=== PATIENT | male | born 1935 | race Caucasian/White ===

== ENCOUNTER 2018-06-09 08:43 | Emergency (ER) | payer MEDICARE ==
--- NOTE | 2018-06-09 08:58 | ED ---
Altered Mental Status - HPI Summary HPI Summary: The pt is an 83 year old M presenting to the ED BIBA for altered mental status. LEVEL 5 CAVEAT: The pts full hx and physical is limited due to AMS. Per son, the pts found him standing in the hallway like a zombie, completely unresponsive, not talking properly and not walking. The pt was fine over the weekend. The pt has lung cancer which he finished tx in February for, and HTN which he takes medicine for. The pts son denies hx of DM, heart disease, or respiratory issues. - History Of Current Complaint Stated Complaint: AMS Time Seen by Provider: 06/09/18 08:49 Hx Obtained From: Family/Medical Center Director - son, EMS Hx From Patient Unobtainable Due To: Altered Mental Status Onset/Duration: Still Present, Suddenly - this morning, unresponsive, not walking or talking Timing: Constant, Lasting Hours Severity Initially: Mild Severity Currently: Mild Character: Confusion, Responsiveness - none Aggravating Factor(s): Nothing Alleviating Factor(s): Nothing Associated Signs And Symptoms: Positive: Negative - Allergies/Home Medications Allergies/Adverse Reactions: Allergies Allergy/AdvReac Type Severity Reaction Status Date / Time No Known Allergies Allergy Verified 01/05/16 07:08 PMH/Surg Hx/FS Hx/Imm Hx Previously Healthy: No Endocrine/Hematology History: Denies: Hx Anticoagulant Therapy, Hx Diabetes, Hx Thyroid Disease Cardiovascular History: Reports: Hx Hypertension Denies: Hx Congestive Heart Failure, Hx Deep Vein Thrombosis, Hx Myocardial Infarction, Hx Pacemaker/ICD Respiratory History: Denies: Hx Asthma, Hx Chronic Obstructive Pulmonary Disease (COPD), Hx Lung Cancer, Hx Pneumonia, Hx Pulmonary Embolism GI History: Denies: Hx Gall Bladder Disease, Hx Gastrointestinal Bleed, Hx Ulcer, Hx Urosepsis History: Denies: Hx Kidney Stones, Hx Renal Disease Neurological History: Denies: Hx Dementia, Hx Migraine, Hx Seizures, Hx Transient Ischemic Attacks (TIA) Psychiatric History: Denies: Hx Anxiety, Hx Depression, Hx Schizophrenia, Hx Bipolar Disorder - Cancer History Cancer Type, 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, lung cancer Date and Location of Last Treatment: last chemotherapy in February - Surgical History Surgery Procedure, Year, and Place: appe; port left chest; tonsils Infectious Disease History: Denies: Hx Clostridium Difficile, Hx Hepatitis, Hx Human Immunodeficiency Virus (HIV), Hx of Known/Suspected MRSA, Hx Shingles, Hx Tuberculosis, Hx Known/ Suspected VRE, Hx Known/Suspected VRSA, History Other Infectious Disease - Family History Known Family History: Negative: Cardiac Disease, Seizure Disorder - Social History Alcohol Use: None Substance Use Type: Reports: None Smoking Status (MU): Former Smoker Review of Systems Negative: Fever Neurological: Other - nonresponsive, not talking or walking properly Positive: Weakness All Other Systems Reviewed And Are Negative: Yes Physical Exam - Summary Physical Exam Summary: Appearance: Well-appearing, Well-nourished, lying in bed comfortably Skin: Warm, dry, no obvious rash Eyes: sclera anicteric, no conjunctival pallor ENT: mucous membranes moist, pharynx appears normal Neck: Supple, nontender Respiratory: Clear to auscultation, no signs of respiratory distress Cardiovascular: Normal S1, S2. No murmurs. Normal distal pulses in tibial and radial bilaterally. Abdomen: Soft, nontender, normal active bowel sounds present Musculoskeletal: Strength/ROM Intact Neurological: pt is awake, turns to voice but is nonverbal. Appears to have symmetrical movement in extremities. No facial droop. Tremor of the tongue. Appears to gaze preferentially to the L but can gaze rightward when prompted. Psychiatric: does not appear anxious or depressed Triage Information Reviewed: Yes Vital Signs Reviewed: Yes Completion Of Physical Exam Limited Due To: Altered Mental Status Diagnostics - Laboratory Result Diagrams: 06/09/18 09:10 06/09/18 09:10 Lab Statement: Any lab studies that have been ordered have been reviewed, and results considered in the medical decision making process. - Radiology Chest xray Radiology Interpretation Completed By: Radiologist Summary of Radiographic Findings: Possible infiltrate at the medial aspect of the right lower lung. - CT 0850 CT Interpretation Completed By: Radiologist Summary of CT Findings: 1. There is mixed attenuation atherosclerosis of the bilateral carotid bulbs. According to NASCET criteria there is approximately 38 % degree stenosis at the right carotid bulb and a 0% degree stenosis at the left carotid bulb. 2. There is no abrupt filling defect or other acute abnormality of the visualized arteries of the head and neck. 3. There is an age -appropriate degree of microvascular disease and involutional changes of the brain. 4. Possible nasal polyp in the left choana. Superior characterization could BE made with direct visualization. 5. Incidentally noted is low- attenuation material surrounding the patient's left subclavian vein Mediport. This could either be due to contrast-free blood mixing from the left internal jugular vein or could be formation of a fibrin sheath. Please correlate to functionality of the patient's Mediport. CTA Head/Neck/Brain CT Interpretation Completed By: Radiologist Summary of CT Findings: 1. There is mixed attenuation atherosclerosis of the bilateral carotid bulbs. According to NASCET criteria there is approximately 38 % degree stenosis at the right carotid bulb and a 0% degree stenosis at the left carotid bulb. 2. There is no abrupt filling defect or other acute abnormality of the visualized arteries of the head and neck. 3. There is an age -appropriate degree of microvascular disease and involutional changes of the brain. 4. Possible nasal polyp in the left choana. Superior characterization could BE made with direct visualization. 5. Incidentally noted is low- attenuation material surrounding the patient's left subclavian vein Mediport. This could either be due to contrast-free blood mixing from the left internal jugular vein or could be formation of a fibrin sheath. Please correlate to functionality of the patient's Mediport. Altered Mental Statu Course/Dx - Course Course Of Treatment: The pt is an 83 y/o M presenting to the ED BIBA for AMS. found him standing in hallway "like a zombie" not responding or walking. The pt was fine before this event. The pt has a hx of lung cancer and HTN. - Diagnoses Provider Diagnoses: Altered mental status Discharge - Sign-Out/Discharge Documenting (check all that apply): Patient Departure - Discharge Plan Condition: Stable Disposition: TRANS HIGHER LVL OF CARE FAC Referrals: No Primary Care Phys,NOPCP [Medical Doctor] - - Billing Disposition and Condition Condition: STABLE Disposition: Trans Higher Lvl of Care Fac - Attestation Statements Document Initiated by Scribe: Yes Documenting Scribe: Kamala Frank Provider For Whom Joana is Documenting (Include Credential): Romulo Ding MD. Scribe Attestation: Kamala Rogers scribed for Romulo Ding MD. on 06/09/18 at 1746. Scribe Documentation Reviewed: Yes Provider Attestation: The documentation as recorded by the jesusibKamala anne accurately reflects the service I personally performed and the decisions made by Romulo spencer MD. Consult Consult: 1230 - Spoke with Dr. Soler about the pt's history and present condition, who will be coming to see the patient for further evaluation. He will be the accepting physician. Our hospitalist service have the patient evaluated by our neurologist Dr. Waite. After hearing the history Dr. Waite feels that the patient will need an EEG and perhaps EEG monitoring, and we do not have that capability today. Therefore he feels the patient should be transferred to a tertiary care center. I'll make the arrangements to have him transferred out. 1630 - Godfrey Martell MD., from [facility], has confirmed that there is EEG monitoring at their hospital. He will be reviewing some paperwork and calling us back to confirm acceptance. 1649 - Dr. Palma will be the accepting physician at [facility].
--- OUTSIDE RECORDS SUMMARY | 2018-06-09 09:15 | XMS REPORT | Continuity of Care Document ---
:1935 External Reference #:[id number] Author Name [facility] Care Team Providers Name Role Phone Eboni Jacobs D.O. Care Team Information Bottle Blower Unavailable Hakeem Mitchell MD Primary Care Physician Unavailable Payers Type Date Identification Numbers Payment Provider Subscriber Policy Number: [id number] Medicare Nikos Yoon PayID: [id number] [address] [place] [address] Effective: 2013 Policy Number: Aar Supplemental Plan Nikos Yoon [id number] PayID: [id number] [address] [place] [address] Effective: 2002 Policy Number: [id number] Medicare Nikos Yoon Expires: 2018 PayID: [id number] [address] [place] [address] Advance Directives Description No Information Available Problems Date Description Provider Status Onset: 01/22/2012 Microscopic hematuria Johana Sewell MD Active Onset: 01/22/2012 Raised prostate specific antigen Johana Sewell MD Active Onset: 01/22/2012 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 No family history of kidney stones. Social History Type Date Description Comments Sex Unknown Marital Status Patient is Occupation Patient is retired Tobacco Use Start: Unknown End: Unknown Former Cigarette Smoker quit 1955 Smoking Status Reviewed: 06/03/18 Former Cigarette Smoker quit 1955 ETOH Use 01/31/2017 Patient denies alcohol use Allergies, Adverse Reactions, Alerts Description No Known Drug Allergies Medications Medication Date Status Form Strength Qnty SIG Indications Ordering Provider Tamsulosin HCL 04/26 Active Capsules 0.4mg 30cap 1 by Balaji brittanie Leiva MD every day Hydrochlorothiazide Active Tablets 25mg Unknown /0000 Stool Softener Active Capsules 100mg take 1 Unknown capsule by mouth once Tamsulosin HCL Hx Capsules 0.4mg 90cap PO qd Elhassan, /0000 s Vasquez M, - M.D. 04/25 Allopurinol Hx Tablets 100mg Boufal, /0000 Eboni, - D.O. 08/19 Vitamin D Hx Capsules [id number] Boufal, (Ergocalciferol) /0000 Eboni, - D.O. 12/13 Immunizations Description No Information Available Vital Signs Date Vital Result Comment 05/24/2018 9:47am Height 65 inches 5'5" Weight 123.00 lb Weight 55.793 kg BMI (Body Mass Index) 20.5 kg/m2 Post Void Residual ml 287 bladder scan 04/26/2018 9:35am Height 66 inches 5'6" Weight 128.00 lb Weight 58.061 kg BMI (Body Mass Index) 20.7 kg/m2 12/14/2017 2:24pm Height 66 inches 5'6" Weight 136.25 lb Weight 61.803 kg BMI (Body Mass Index) 22.0 kg/m2 BP Systolic 143 mmHg BP Diastolic 70 mmHg Heart Rate 59 /min Respiratory Rate 20 /min 08/20/2017 3:21pm Height 66 inches 5'6" Weight 143.00 lb Weight 64.865 kg BMI (Body Mass Index) 23.1 kg/m2 BP Systolic 134 mmHg BP Diastolic 82 mmHg Heart Rate 61 /min 07/25/2017 1:59pm Height 66 inches 5'6" Weight 145.00 lb Weight 65.772 kg BMI (Body Mass Index) 23.4 kg/m2 BP Systolic 159 mmHg BP Diastolic 80 mmHg Heart Rate 62 /min Respiratory Rate 20 /min 01/31/2017 1:58pm Height 65 inches 5'5" Weight 155.00 lb Weight 70.308 kg BMI (Body Mass Index) 25.8 kg/m2 BP Systolic 137 mmHg BP Diastolic 83 mmHg Heart Rate 68 /min Respiratory Rate 20 /min Body Temperature 97.5 F 01/21/2016 9:03am Height 65 inches 5'5" Weight 153.00 lb Weight 69.401 kg BMI (Body Mass Index) 25.5 kg/m2 BP Systolic 142 mmHg right wrist audio BP Diastolic 87 mmHg right wrist audio Heart Rate 63 /min Body Temperature 97.3 F Post Void Residual ml 30ml Indication:, Ultrasound johanny 01/29/2015 9:19am Height 64 inches 5'4" Weight 151.00 lb Weight 68.494 kg BMI (Body Mass Index) 25.9 kg/m2 BP Systolic 130 mmHg right wrist audio BP Diastolic 76 mmHg right wrist audio Heart Rate 72 /min Body Temperature 97.8 F 01/23/2014 9:14am Height 65 inches 5'5" Weight 150.00 lb Weight 68.040 kg BMI (Body Mass Index) 25.0 kg/m2 BP Systolic 129 mmHg right wrist audio BP Diastolic 77 mmHg right wrist audio Heart Rate 66 /min Body Temperature 97.8 F 07/22/2013 8:34am Height 65 inches 5'5" Weight 160.00 lb Weight 72.576 kg BMI (Body Mass Index) 26.6 kg/m2 BP Systolic 126 mmHg right wrist auto cuff BP Diastolic 80 mmHg right wrist auto cuff Heart Rate 78 /min Body Temperature 97.9 F 01/24/2013 1:09pm Respiratory Rate 12 /min 07/19/2012 9:23am Height 65 inches 5'5" Weight 160.00 lb Weight 72.576 kg BMI (Body Mass Index) 26.6 kg/m2 BP Systolic 123 mmHg right BP Diastolic 70 mmHg right Heart Rate 64 /min Body Temperature 97.2 F 01/24/2012 4:06pm BP Systolic 123 mmHg right BP Diastolic 75 mmHg right Heart Rate 65 /min Body Temperature 98.4 F 07/27/2011 2:11pm Heart Rate 78 /min 07/27/2011 2:07pm BP Systolic 136 mmHg BP Diastolic 86 mmHg Respiratory Rate 18 /min Body Temperature 98.2 F 01/25/2011 3:32pm BP Systolic 118 mmHg left wrist BP Diastolic 72 mmHg left wrist Heart Rate 63 /min Body Temperature 98.3 F Results Test Date Facility Test Result H/L Range Note 230 Ua Routine 06/03/2018 [facility] Ua Glucose Negative REF TO DR ADDRESS ON ORDER FOR (315)- - Ua Protein Negative Ua Nitrite Negative Ua Leuko Trace Ua Blood Negative Ua Color Yellow Ua Ketones Negative Ua Clarity Clear Ua Specific Central 1.020 1.003-1.030 Ua PH 5.5 5.0-7.5 Ua Bilirubin Negative Ua Urobilinogen 0.2 E.U./dL 0.0-1.0 230 Ua Routine 05/24/2018 [facility] Ua Glucose Negative REF TO DR ADDRESS ON ORDER FOR (315)- - Ua Protein Negative Ua Nitrite Negative Ua Leuko Negative Ua Blood Negative Ua Color Yellow Ua Ketones Negative Ua Clarity Clear Ua Specific Central 1.020 1.003-1.030 Ua PH 5.0 5.0-7.5 Ua Bilirubin Negative Ua Urobilinogen 0.2 E.U./dL 0.0-1.0 Laboratory test 05/16/2018 [facility] Prostate 7.38 ng/mL High < 4.0 1, 2 finding [address] [place] [address] Antigen [phone] 230 Ua Routine 04/26/2018 [facility] Ua Glucose Negative REF TO DR ADDRESS ON ORDER FOR (315)- - Ua Protein Negative Ua Nitrite Negative Ua Leuko Negative Ua Blood Negative Ua Color Yellow Ua Ketones Negative Ua Clarity Clear Ua Specific Central 1.015 1.003-1.030 Ua PH 6.0 5.0-7.5 Ua Bilirubin Negative Ua Urobilinogen 0.2 E.U./dL 0.0-1.0 Iron And Tibc Serum 03/07/2018 Outside Facility Miscellaneous Test 79 65 -175 (315)- - Laboratory test 03/07/2018 Outside Facility Egfr >60 >60 finding (315)- - CMP 03/07/2018 Outside Facility BUN - Urea Nitrogen 19 High 7-18 (315)- - Creatinine 1.0 0.6-1.3 Calcium 9.3 8.5-10.1 Alkaline Phosphatase 57 45-117 Ast (Sgot) 16 15-37 Potassium 3.3 Low 3.5-5.1 Alt (SGPT) 22 12-78 230 Ua Routine 12/14/2017 [facility] Ua Glucose Negative REF TO DR ADDRESS ON ORDER FOR (315)- - Ua Protein Negative Ua Nitrite Negative Ua Leuko Negative Ua Blood Negative Ua Color Yellow Ua Ketones Negative Ua Clarity Clear Ua Specific Central 1.020 1.003-1.030 Ua PH 6.0 5.0-7.5 Ua Bilirubin Negative Ua Urobilinogen 0.2 E.U./dL 0.0-1.0 Laboratory test 12/04/2017 Outside Facility PSA Total 8.11 High <4.0 finding (315)- - CMP 12/04/2017 Outside Facility BUN - Urea 19 High 7-18 (315)- - Nitrogen Creatinine 0.8 0.6-1.3 Calcium 9.1 8.5-10.1 Alkaline Phosphatase 66 45-117 Ast (Sgot) 17 15-37 Potassium 3.3 Low 3.5-5.1 Alt (SGPT) 18 12-78 Laboratory test finding 12/04/2017 Outside Facility Egfr >60 >60 (315)- - 230 Ua Routine 08/20/2017 [facility] Ua Glucose Negative REF TO DR ADDRESS ON ORDER FOR (315)- - Ua Protein Negative Ua Nitrite Negative Ua Leuko Trace Ua Blood Negative Ua Color Yellow Ua Ketones Negative Ua Clarity Clear Ua Specific Central 1.020 1.003-1.030 Ua PH 5.0 5.0-7.5 Ua Bilirubin Negative Ua Urobilinogen 0.2 E.U./dL 0.0-1.0 Laboratory test 07/25/2017 [facility] Total Psa 6.52 ng/mL High 0.00-4.[address] [place] [address] [phone] Free PSA 2.3 ng/mL % PSA 35.276 230 Ua Routine 07/25/2017 [facility] Ua Glucose Negative REF TO DR ADDRESS ON ORDER FOR (315)- - Ua Protein Negative Ua Nitrite Negative Ua Leuko Negative Ua Blood Negative Ua Color Yellow Ua Ketones Negative Ua Clarity Clear Ua Specific Central 1.010 1.003-1.030 Ua PH 5.5 5.0-7.5 Ua Bilirubin Negative Ua Urobilinogen 0.2 E.U./dL 0.0-1.0 230 Ua Routine 01/31/2017 [facility] Ua Glucose Negative REF TO DR ADDRESS ON ORDER FOR (315)- - Ua Protein Negative Ua Nitrite Negative Ua Leuko Negative Ua Blood Negative Ua Color yellow Ua Ketones Negative Ua Clarity clear Ua Specifici Central 1.015 1.003-1.030 Ua PH 5.5 5.0-7.5 Ua Bilirubin Negative Ua Urobilinogen 0.2 E.U./dL 0.0-1.0 Laboratory test 01/31/2017 [facility] Total Psa 5.97 ng/mL High 0.00-4.[address] [place] [address] [phone] Testosterone 369.83 ng/dL 300.00-1000.00 230 Ua Routine 07/26/2016 [facility] Ua Glucose Negative REF TO DR ADDRESS ON ORDER FOR (315)- - Ua Protein Negative Ua Nitrite Negative Ua Leuko Trace Ua Blood Negative Ua Color yellow Ua Ketones Negative Ua Clarity clear Ua Specifici Central 1.020 1.003-1.030 Ua PH 6.5 5.0-7.5 Ua Bilirubin Negative Ua Urobilinogen 0.2 E.U./dL 0.0-1.0 Laboratory test 01/24/2016 [facility] [place] PSA,Total @ 7.8 ng/mL High (0.0-4.0) 3, 4 finding POB FX# [phone] [phone] Testosterone,Total @ 277 ng/dL (175-781) 5 230 Ua Routine 01/21/2016 [facility] Ua Glucose Negative REF TO DR ADDRESS ON ORDER FOR (315)- - Ua Protein Negative Ua Nitrite Negative Ua Leuko Trace Ua Blood Negative Ua Color yellow Ua Ketones Negative Ua Clarity clear Ua Specifici Central 1.015 1.003-1.030 Ua PH 6.0 5.0-7.5 Ua Bilirubin Negative Ua Urobilinogen 0.2 E.U./dL 0.0-1.0 230 Ua Routine 07/22/2015 [facility] Ua Glucose Negative REF TO DR ADDRESS ON ORDER FOR (315)- - Ua Protein Negative Ua Nitrite Negative Ua Leuko 1+ Ua Blood Negative Ua Color yellow Ua Ketones Negative Ua Clarity clear Ua Specific Central 1.015 1.003-1.030 Ua PH 6.0 5.0-7.5 Ua Bilirubin Negative Ua Urobilinogen 0.2 E.U./dL 0.0-1.0 Laboratory test 07/22/2015 [facility] Total Psa 4.62 ng/mL High 0.00-4.[address] [place] [address] [phone] Testosterone 525.61 ng/dL 300.00-1000.00 #Ua Routine 01/29/2015 [facility] Ua Glucose Negative REF TO DR ADDRESS ON ORDER FOR (315)- - Ua Protein Negative Ua Nitrite Negative Ua Leuko Negative Ua Blood Negative Ua Color yellow Ua Ketones Negative Ua Clarity clear Ua Specific Central 1.015 1.003-1.030 Ua PH 5.5 5.0-7.5 Ua Bilirubin Negative Ua Urobilinogen 0.2 E.U./dL 0.0-1.0 Laboratory test 01/29/2015 [facility] Total Psa 5.26 ng/mL High 0.00-4.[address] [place] [address] [phone] #Ua Routine 07/28/2014 [facility] Ua Glucose Negative REF TO DR ADDRESS ON ORDER FOR (315)- - Ua Protein Negative Ua Nitrite Negative Ua Leuko Negative Ua Blood Negative Ua Color yellow Ua Ketones Negative Ua Clarity clear Ua Specific Central 1.015 1.003-1.030 Ua PH 6.0 5.0-7.5 Ua Bilirubin Negative Ua Urobilinogen 0.2 E.U./dL 0.0-1.0 BMP 07/22/2014 [facility] BUN - Urea Nitrogen 17 7 -18 [address] [place], [place] [address] [phone] Creatinine 1.2 0.6-1.3 Laboratory test 07/22/2014 [facility] Total Psa 5.35 ng/mL High 0.00-4.[address] [place] [address] [phone] Testosterone 319.98 ng/dL 300.00-1000.00 #Ua Routine 01/23/2014 [facility] Ua Glucose Negative REF TO DR ADDRESS ON ORDER FOR (315)- - Ua Protein Negative Ua Nitrite Negative Ua Leuko Trace Ua Blood Negative Ua Color yellow Ua Ketones Negative Ua Clarity clear Ua Specific Central 1.015 1.003-1.030 Ua PH 5.0 5.0-7.5 Ua Bilirubin Negative Ua Urobilinogen 0.2 E.U./dL 0.0-1.0 Laboratory test 01/21/2014 [facility] Total Psa 3.61 ng/mL 0.00-4.[address] [place] [address] [phone] #Ua Routine 07/25/2013 [facility] Ua Glucose Negative REF TO DR ADDRESS ON ORDER FOR (315)- - Ua Protein Negative Ua Nitrite Negative Ua Leuko Negative Ua Blood Negative Ua Color yellow Ua Ketones Negative Ua Clarity clear Ua Specific Central 1.025 1.003-1.030 Ua PH 6.0 5.0-7.5 Ua Bilirubin Negative Ua Urobilinogen 0.2 E.U./dL 0.2-1 Laboratory test 07/22/2013 [facility] Total PSA 5.00 ng/mL High 0.00-4.[address] [place] [address] [place] [address] [phone] Testosterone 528.32 ng/dL 300.00-1000.00 BUN And 06/02/2013 Outside Facility BUN - Urea 20 6-24 Creatinine (Lab (315)- - Nitrogen [place]) Creatinine 06/02/2013 Outside Facility Creatinine Serum 0.9 .5-1.4 (315)- - Laboratory test 01/17/2013 [facility] Total PSA 4.39 High 0.00-4.[address] [place] [address] ng/[place] [address] [phone] PSA Free 01/17/2013 [facility] Free PSA 1.[address] [place] [address] ng/[place] [address] [phone] Free PSA 37 #Ua Routine 01/17/2013 [facility] Ua Glucose Negative REF TO DR ADDRESS ON ORDER FOR (315)- - Ua Protein Negative Ua Nitrite Negative Ua Leuko Negative Ua Blood Trace-intact Ua Color Not Entered Ua Ketones Negative Ua Clarity Not Entered Ua Specific Central 1.015 Ua PH 6.5 Ua Bilirubin Negative Ua Urobilinogen 0.2 E.U./dL Laboratory test 07/19/2012 [facility] Total PSA 3.53 ng/mL 0.00-4.[address] [place] [address] [phone] Testosterone 414.09 ng/dL 199.00-1586.00 #Ua Routine 07/19/2012 [facility] Ua Glucose Negative REF TO DR ADDRESS ON ORDER FOR (315)- - Ua Protein Negative Ua Nitrite Negative Ua Leuko 1+ Ua Blood Negative Ua Color Not Entered Ua Ketones Negative Ua Clarity Not Entered Ua Specific Central 1.020 Ua PH 5.0 Ua Bilirubin Negative Ua Urobilinogen 0.2 E.U./dL #Ua Routine 01/24/2012 [facility] Ua Glucose Negative REF TO DR ADDRESS ON ORDER FOR (315)- - Ua Protein Negative Ua Nitrite Negative Ua Leuko Trace Ua Blood Negative Ua Color Not Entered Ua Ketones Negative Ua Clarity Not Entered Ua Specific Central 1.015 Ua PH 6.0 Ua Bilirubin Negative Ua Urobilinogen 0.2 E.U./dL Laboratory test 01/24/2012 [facility] Total PSA 7.34 ng/mL High 0.00-4.00 finding [address] [place] [address] [phone] PSA Free 01/24/2012 [facility] Free PSA 2.726 ng/mL [address] [place] [address] [phone] Free PSA 37 Laboratory test 07/27/2011 [facility] Urine Cytology X finding REF TO DR ADDRESS ON ORDER FOR Void (Amp/CBL) (315)- - Culture Urine 07/27/2011 [facility] Result (SEE 6 [address] [facility] [place] [address] [phone] Laboratory test 07/27/2011 [facility] Total PSA 4.34 High 0.00-4 finding [address] [facility] ng/mL .[address] [place] [address] [phone] Testosterone 375.57 ng/dL 225.00-972.00 PSA Free 07/27/2011 [facility] Free PSA 1.973 ng/mL [address] [place] [address] [phone] Free PSA 45 #Ua Routine 07/27/2011 [facility] Ua Glucose Negative REF TO DR ADDRESS ON ORDER FOR (315)- - Ua Protein Negative Ua Nitrite Negative Ua Leuko 3+ Ua Blood Trace-intact Ua Color Not Entered Ua Ketones Negative Ua Clarity Not Entered Ua Specific Central 1.020 Ua PH 5.0 Ua Bilirubin Negative Ua Urobilinogen 0.2 E.U./dL BUN + Creatinine 03/15/2011 [facility] BUN - Urea Nitrogen 15 5-[address] [place], [place] [id number] [phone] Creatinine 0.9 0.5-1.4 BUN + Creatinine 03/15/2011 [facility] BUN - Urea Nitrogen 15 5-23 [address] [place] [address] [phone] Creatinine 0.9 0.5-1.4 Laboratory test 01/25/2011 [facility] Total PSA 4.00 ng/mL 0.00-4.00 finding [address] [place] [address] [phone] #Ua Routine 01/25/2011 [facility] Ua Glucose Negative REF TO DR ADDRESS ON ORDER FOR (071)- - Ua Prot/Creat Normal Ua Protein Negative Ua Nitrite Negative Ua Leuko Trace Ua Blood Negative Ua Color Not Entered Ua Ketones Negative Ua Clarity Not Entered Ua Specific Central 1.020 Ua PH 6.0 Ua Creatinine 100 mg/dL Laboratory test finding 06/05/2006 Outside Facility PSA Total neg bx (305)- - 1 C82.18, E86.0, R97.20 2 THIS ASSAY IS NOT INTENDED A CANCER SCREENING TEST The concentration of PSA in a given specimen, determined with assays from different manufacturers, can vary due to differences in assay methods and reagent specificity. Values obtained from different assay methods cannot be used interchangeably. Method: Siemens Dimension Handley Chemiluminescent immunoassay. 3 specimen thawed at 08:20am 01/24/16 4 IN 20% OF CASES W/ BPH, PSA MAY BE 10 NG/ML OR MORE. SERUM PSA CONCENTRATION SHOULD NOT BE INTERPRETED ABSOLUTE EVIDENCE FOR THE PRESENCE OR ABSENCE OF MALIGNANT DISEASE. METHOD IS GERSON ACCESS/DXI EQUIMOLAR ASSAY. VALUES OBTAINED WITH DIFFERENT ASSAY METHODS OR KITS CANNOT BE USED INTERCHANGEABLY. 5 PLEASE NOTE: REFERENCE RANGE IS GENDER SPECIFIC FOR ADULTS ONLY. AGE/CHENG STAGE APPROPRIATE REFERENCE RANGES HAVE NOT BEEN ESTABLISHED FOR THIS METHODOLOGY. 6 GENERAL COMMENTS: No Growth after 24 hours. --- S=Sensitive I=Intermediate R=Resistant IB=Inducible Beta-lactamase. Appears in place of "Suceptible" with species known to possess inducible beta-lactamases. Potentially, they may become resistant to all beta-lactam drugs. Monitoring of p atients during/after therapy is recommended. Avoid other/combined beta- lactam drugs. Procedures Date Code Description Status 05/24/2018 79456 Bladder Scan, Post Voiding Residual Urine Completed 05/24/2018 84584610 Colonoscopy Completed 04/26/2018 28893 Bladder Scan, Post Voiding Residual Urine Completed 01/31/2017 89803 Bladder Scan, Post Voiding Residual Urine Completed 01/21/2016 59982 Bladder Scan, Post Voiding Residual Urine Completed 07/22/2015 81513 Ultrasound, Pelvic Limited (Bladder US) Completed Encounters Type Date Location Provider Dx Diagnosis Office Visit 06/03/2018 [facility]Yadira Montague R33.9 Retention of urine, 1:30p Urology Adore Nash unspecified R97.20 Elevated prostate specific antigen [PSA] Office 05/24/2018 [facility]Yadira Montague R33.9 Retention of Visit 10:00a Urology Adore Nash urine, unspecified Office 04/26/2018 [facility]Yadira Montague R97.20 Elevated Visit 9:15a Urology Adore Nash prostate specific antigen [PSA] R33.9 Retention of urine, unspecified Office 12/14/2017 [facility]Yadira Montague R97.20 Elevated Visit 2:30p Urology Adore Nash prostate specific antigen [PSA] Office 08/20/2017 Ty Leiva MD R97.20 Elevated Visit 2:30p Urology prostate specific antigen [PSA] Office 07/25/2017 Ty Leiva MD R97.20 Elevated Visit 1:35p Urology prostate specific antigen [PSA] Office 01/31/2017 Christina Mcconnell, N39.43 Post-void Visit 1:30p Urology Elicia eduardo R97.20 Elevated prostate specific antigen [PSA] N40.1 Benign prostatic hyperplasia with lower urinary tract symp Office Visit 07/26/2016 Christina Mcconnell R97.20 Elevated 3:00p Urology Elicia Huertas prostate specific antigen [PSA] N40.1 Benign prostatic hyperplasia with lower urinary tract symp N39.43 Post-void dribbling Office Visit 01/21/2016 9:00a Marian Molina, R97.2 Elevated Urology [facility] prostate specific antigen [PSA] N40.1 Enlarged prostate with lower urinary tract symptoms R35.0 Frequency of micturition Office Visit 07/22/2015 Christina Mcconnell R97.2 Elevated 9:10a Urology Elicia Huertas prostate specific antigen [PSA] N40.1 Enlarged prostate with lower urinary tract symptoms R35.1 Nocturia R35.0 Frequency of micturition R39.15 Urgency of urination Office Visit 01/29/2015 9:00a Marian Molina, 790.93 Elevated Urology [facility] Prostate Specific Antigen (PSA) 600.01 Hypertrophy Benign Of Prostate With Urinary Obstruction 788.4-1 Nocturia Office Visit 07/28/2014 8:40a Christina Mcconnell 788.4-1 Nocturia Urology Elicia Huertas 790.93 Elevated Prostate Specific Antigen (PSA) 600.01 Hypertrophy Benign Of Prostate With Urinary Obstruction 607.84 Impotence Organic Origin Office Visit 01/23/2014 9:00a Marian Molina, 790.93 Elevated Urology [facility]/[place] Prostate Specific Antigen (PSA) 599.72 Microscopic Hematuria Office Visit 07/25/2013 Christina Mcconnell 790.93 Elevated 10:30a Urology Elicia Huertas Prostate Specific Antigen (PSA) 788.4-1 Nocturia 607.84 Impotence Organic Origin Office Visit 01/24/2013 9:15a Marian Molina, 790.93 Elevated Urology [facility]/[place] Prostate Specific Antigen (PSA) 600.01 Hypertrophy Benign Of Prostate With Urinary Obstruction 599.72 Microscopic Hematuria Office Visit 07/24/2012 Christina Mcconnell 790.93 Elevated 1:10p Urology Elicia Huertas Prostate Specific Antigen (PSA) 600.01 Hypertrophy Benign Of Prostate With Urinary Obstruction Office Visit 01/24/2012 [place]/Christina Gimenez 790.93 Elevated 1:20p Urology Elicia Huertas Prostate Specific Antigen (PSA) 600.00 Hypertrophy Prostate W/O Urinary Obstruction & Other Luts Office Visit 07/27/2011 2:00p [place]/Yadira TraylorMarian, 790.93 Elevated Urology [facility]/[place] Prostate Specific Antigen (PSA) 600.01 Hypertrophy Benign Of Prostate With Urinary Obstruction 599.72 Microscopic Hematuria Office Visit 01/25/2011 [place]/Christina Gimenez 790.93 Elevated 2:50p Urology Elicia Huertas Prostate Specific Antigen (PSA) 788.4-1 Nocturia 600.01 Hypertrophy Benign Of Prostate With Urinary Obstruction Plan of Treatment 06/03/2018 - John Nash,P.ALauraR33.9 Retention of urine, unspecifiedComments :His urinary symptoms especially UTIs or any increasing incontinence we will further evaluation however this point the options are leave him alone or put a catheter in him. The son is comfortable with watchful waiting and be mindful of symptoms.R97.20 Elevated prostate specific antigen [PSA]Comments:Stable over the years. Discussing options including a prostate biopsy due to his age and general health we want to defer that. Uncomfortable at this point recommending that this gentleman has no further prostate cancer screening.I did advise his son today of the closing of our office the end of June. He is getting reviewed with your options what you think best would be for long-term urological follow-up whether UA to follow BUN/creatinine and he'll ultrasound. He also has the option of transferring his care to local urologist in [place] or coming to [place] for follow-up. They'll have this discussion with your office and let us know in the future.
--- OUTSIDE RECORDS SUMMARY | 2018-06-09 09:16 | XMS REPORT | Continuity of Care Document ---
:1935 External Reference #:[id number] Author Name Xena Kent Care Team Providers Name Role Phone Eboni Jacobs D.O. Care Team Information First Leveler Unavailable Hakeem Mitchell MD Primary Care Physician Unavailable Payers Type Date Identification Numbers Payment Provider Subscriber Policy Number: [id number] Medicare Nikos Yoon PayID: [id number] [address] [place] [address] Effective: 2013 Policy Number: Aar Supplemental Plan Nikos Yoon [id number] PayID: [id number] [address] [place] [address] Effective: 2002 Policy Number: [id number] Medicare Nikos Yoon Expires: 2018 PayID: [id number] [address] [place] [address] Advance Directives Description No Information Available Problems [...] Cigarette Smoker quit 1955 Smoking Status Reviewed: 05/24/18 Former Cigarette Smoker quit 1955 ETOH Use [...] - D.O. 08/19 Vitamin D Hx Capsules [id number] Boufal, (Ergocalciferol) /0000 Eboni, - D.O. 12/13 [...] Result H/L Range Note 230 Ua Routine 05/24/2018 [facility] Ua Glucose Negative REF TO DR ADDRESS ON ORDER FOR (315)- - Ua Protein Negative Ua Nitrite Negative Ua Leuko Negative Ua Blood Negative Ua Color Yellow Ua Ketones Negative Ua Clarity Clear Ua Specific [place] 1.020 1.003-1.030 Ua PH 5.0 5.0-7.5 Ua Bilirubin Negative Ua Urobilinogen 0.2 E.U./dL 0.0-1.0 Laboratory test 05/16/2018 [facility] Prostate 7.38 ng/mL < 4.0 1, [address] [place] [address] Antigen [phone] 230 Ua Routine 04/26/2018 [facility] Ua Glucose Negative REF TO DR ADDRESS ON ORDER FOR (315)- - Ua Protein Negative Ua Nitrite Negative Ua Leuko Negative Ua Blood Negative Ua Color Yellow Ua Ketones Negative Ua Clarity Clear Ua Specific [place] 1.015 1.003-1.030 Ua PH 6.0 5.0-7.5 Ua Bilirubin Negative Ua Urobilinogen 0.2 E.U./dL 0.0-1.0 CMP 03/07/2018 Outside Facility BUN - Urea Nitrogen 19 High 7-18 (315)- - Creatinine 1.0 0.6-1.3 Calcium 9.3 8.5-10.1 Alkaline Phosphatase 57 45-117 Ast (Sgot) 16 15-37 Potassium 3.3 Low 3.5-5.1 Alt (SGPT) 22 12-78 Laboratory test 03/07/2018 Outside Facility Egfr >60 >60 finding (315)- - Iron And Tibc 03/07/2018 Outside Facility Miscellaneous Test 79 65-175 Serum (315)- - 230 Ua Routine 12/14/2017 [facility] Ua Glucose Negative REF TO DR ADDRESS ON ORDER FOR (315)- - Ua Protein Negative Ua Nitrite Negative Ua Leuko Negative Ua Blood Negative Ua Color Yellow Ua Ketones Negative Ua Clarity Clear Ua Specific [place] 1.020 1.003-1.030 Ua PH 6.0 5.0-7.5 Ua Bilirubin Negative Ua Urobilinogen 0.2 E.U./dL 0.0-1.0 Laboratory test 12/04/2017 Outside Facility Egfr >60 >60 finding (315)- - CMP 12/04/2017 Outside Facility BUN - Urea Nitrogen 19 High 7-18 (315)- - Creatinine 0.8 0.6-1.3 Calcium 9.1 8.5-10.1 Alkaline Phosphatase 66 45-117 Ast (Sgot) 17 15-37 Potassium 3.3 Low 3.5-5.1 Alt (SGPT) 18 12-78 Laboratory test 12/04/2017 Outside Facility PSA Total 8.11 High <4.0 finding (315)- - 230 Ua Routine 08/20/2017 [facility] Ua Glucose Negative REF TO DR ADDRESS ON ORDER FOR (315)- - Ua Protein Negative Ua Nitrite Negative Ua Leuko Trace Ua Blood Negative Ua Color Yellow Ua Ketones Negative Ua Clarity Clear Ua Specific [place] 1.020 1.003-1.030 Ua PH 5.0 5.0-7.5 Ua Bilirubin Negative Ua Urobilinogen 0.2 E.U./dL 0.0-1.0 Laboratory test 07/25/2017 [facility] Total Psa 6.52 ng/mL High 0.00-4.[address] [place] [address] [phone] Free PSA 2.3 ng/mL % PSA 35.276 230 Ua Routine 07/25/2017 [facility] Ua Glucose Negative REF TO DR ADDRESS ON ORDER FOR (315)- - Ua Protein Negative Ua Nitrite Negative Ua Leuko Negative Ua Blood Negative Ua Color Yellow Ua Ketones Negative Ua Clarity Clear Ua Specific [place] 1.010 1.003-1.030 Ua PH 5.5 5.0-7.5 Ua Bilirubin Negative Ua Urobilinogen 0.2 E.U./dL 0.0-1.0 230 Ua Routine 01/31/2017 [facility] Ua Glucose Negative REF TO DR ADDRESS ON ORDER FOR (315)- - Ua Protein Negative Ua Nitrite Negative Ua Leuko Negative Ua Blood Negative Ua Color yellow Ua Ketones Negative Ua Clarity clear Ua Specifici [place] 1.015 1.003-1.030 Ua PH 5.5 5.0-7.5 Ua Bilirubin Negative Ua Urobilinogen 0.2 E.U./dL 0.0-1.0 Laboratory test 01/31/2017 [facility] Total Psa 5.97 ng/mL High 0.00-4.[address] [place] [address] [phone] Testosterone 369.83 ng/dL 300.00-1000.00 230 Ua Routine 07/26/2016 [facility] Ua Glucose Negative REF TO DR ADDRESS ON ORDER FOR (315)- - Ua Protein Negative Ua Nitrite Negative Ua Leuko Trace Ua Blood Negative Ua Color yellow Ua Ketones Negative Ua Clarity clear Ua Specifici [place] 1.020 1.003-1.030 Ua PH 6.5 5.0-7.5 Ua Bilirubin Negative Ua Urobilinogen 0.2 E.U./dL 0.0-1.0 Laboratory test 01/24/2016 [facility] [place] PSA,Total @ 7.8 ng/mL High (0.0-4.0) 3, 4 finding POB FX# [id number] [phone] Testosterone,Total @ 277 ng/dL (175-781) 5 230 Ua Routine 01/21/2016 [facility] Ua Glucose Negative REF TO DR ADDRESS ON ORDER FOR (315)- - Ua Protein Negative Ua Nitrite Negative Ua Leuko Trace Ua Blood Negative Ua Color yellow Ua Ketones Negative Ua Clarity clear Ua Specifici [place] 1.015 1.003-1.030 Ua PH 6.0 5.0-7.5 Ua Bilirubin Negative Ua Urobilinogen 0.2 E.U./dL 0.0-1.0 230 Ua Routine 07/22/2015 [facility] Ua Glucose Negative REF TO DR ADDRESS ON ORDER FOR (315)- - Ua Protein Negative Ua Nitrite Negative Ua Leuko 1+ Ua Blood Negative Ua Color yellow Ua Ketones Negative Ua Clarity clear Ua Specific [place] 1.015 1.003-1.030 Ua PH 6.0 5.0-7.5 Ua Bilirubin Negative Ua Urobilinogen 0.2 E.U./dL 0.0-1.0 Laboratory test 07/22/2015 [facility] Total Psa 4.62 ng/mL High 0.00-4.00 finding [address] [place] [address] [phone] Testosterone 525.61 ng/dL 300.00-1000.00 #Ua Routine 01/29/2015 [facility] Ua Glucose Negative REF TO DR ADDRESS ON ORDER FOR (315)- - Ua Protein Negative Ua Nitrite Negative Ua Leuko Negative Ua Blood Negative Ua Color yellow Ua Ketones Negative Ua Clarity clear Ua Specific [place] 1.015 1.003-1.030 Ua PH 5.5 5.0-7.5 Ua Bilirubin Negative Ua Urobilinogen 0.2 E.U./dL 0.0-1.0 Laboratory test 01/29/2015 [facility] Total Psa 5.26 ng/mL High 0.00-4.[address] [place], [place] [address], [place] [address] [phone] #Ua Routine 07/28/2014 [facility] Ua Glucose Negative REF TO DR ADDRESS ON ORDER FOR (315)- - Ua Protein Negative Ua Nitrite Negative Ua Leuko Negative Ua Blood Negative Ua Color yellow Ua Ketones Negative Ua Clarity clear Ua Specific [place] 1.015 1.003-1.030 Ua PH 6.0 5.0-7.5 Ua Bilirubin Negative Ua Urobilinogen 0.2 E.U./dL 0.0-1.0 BMP 07/22/2014 [facility] BUN - Urea Nitrogen 17 7 -18 [address] [place] [address] [phone] Creatinine 1.2 0.6-1.3 Laboratory test 07/22/2014 [facility] Total Psa 5.35 ng/mL High 0.00-4.[address] [place] [address] [phone] Testosterone 319.98 ng/dL 300.00-1000.00 #Ua Routine 01/23/2014 [facility] Ua Glucose Negative REF TO DR ADDRESS ON ORDER FOR (315)- - Ua Protein Negative Ua Nitrite Negative Ua Leuko Trace Ua Blood Negative Ua Color yellow Ua Ketones Negative Ua Clarity clear Ua Specific [place] 1.015 1.003-1.030 Ua PH 5.0 5.0-7.5 Ua Bilirubin Negative Ua Urobilinogen 0.2 E.U./dL 0.0-1.0 Laboratory test 01/21/2014 [facility] Total Psa 3.61 ng/mL 0.00-4.[address] [place] [address] [phone] #Ua Routine 07/25/2013 [facility] Ua Glucose Negative REF TO DR ADDRESS ON ORDER FOR (315)- - Ua Protein Negative Ua Nitrite Negative Ua Leuko Negative Ua Blood Negative Ua Color yellow Ua Ketones Negative Ua Clarity clear Ua Specific [place] 1.025 1.003-1.030 Ua PH 6.0 5.0-7.5 Ua Bilirubin Negative Ua Urobilinogen 0.2 E.U./dL 0.2-1 Laboratory test 07/22/2013 [facility] Total PSA 5.00 ng/mL High 0.00-4.[address] [place] [address] [place] [address] [phone] Testosterone 528.32 ng/dL 300.00-1000.00 BUN And 06/02/2013 Outside Facility BUN - Urea 20 6-24 Creatinine (Lab (315)- - Nitrogen [place]) Creatinine 06/02/2013 Outside Facility Creatinine Serum 0.9 .5-1.4 (315)- - PSA Free 01/17/2013 [facility] Free PSA 1.[address] [place] [address] ng/[place] [address] [phone] Free PSA 37 Laboratory test 01/17/2013 [facility] Total PSA 4.39 ng/mL High 0.00-4.[address] [place] [address] [phone] #Ua Routine 01/17/2013 [facility] Ua Glucose Negative REF TO DR ADDRESS ON ORDER FOR (315)- - Ua Protein Negative Ua Nitrite Negative Ua Leuko Negative Ua Blood Trace-intact Ua Color Not Entered Ua Ketones Negative Ua Clarity Not Entered Ua Specific [place] 1.015 Ua PH 6.5 Ua Bilirubin Negative Ua Urobilinogen 0.2 E.U./dL Laboratory test 07/19/2012 [facility] Total PSA 3.53 ng/mL 0.00-4.[address] [place] [address] [phone] Testosterone 414.09 ng/dL 199.00-1586.00 #Ua Routine 07/19/2012 [facility] Ua Glucose Negative REF TO DR ADDRESS ON ORDER FOR (315)- - Ua Protein Negative Ua Nitrite Negative Ua Leuko 1+ Ua Blood Negative Ua Color Not Entered Ua Ketones Negative Ua Clarity Not Entered Ua Specific [place] 1.020 Ua PH 5.0 Ua Bilirubin Negative Ua Urobilinogen 0.2 E.U./dL #Ua Routine 01/24/2012 [facility] Ua Glucose Negative REF TO DR ADDRESS ON ORDER FOR (315)- - Ua Protein Negative Ua Nitrite Negative Ua Leuko Trace Ua Blood Negative Ua Color Not Entered Ua Ketones Negative Ua Clarity Not Entered Ua Specific [place] 1.015 Ua PH 6.0 Ua Bilirubin Negative Ua Urobilinogen 0.2 E.U./dL Laboratory test 01/24/2012 [facility] Total PSA 7.34 ng/mL High 0.00-4.[address] [place] [address] [phone] PSA Free 01/24/2012 [facility] Free PSA 2.726 ng/mL [address] [place] [address] [phone] Free PSA 37 #Ua Routine 07/27/2011 [facility] Ua Glucose Negative REF TO DR ADDRESS ON ORDER FOR (979)- - Ua Protein Negative Ua Nitrite Negative Ua Leuko 3+ Ua Blood Trace-intact Ua Color Not Entered Ua Ketones Negative Ua Clarity Not Entered Ua Specific [place] 1.020 Ua PH 5.0 Ua Bilirubin Negative Ua Urobilinogen 0.2 E.U./dL Laboratory test 07/27/2011 [facility] Urine Cytology X finding REF TO DR ADDRESS ON ORDER FOR Void (Amp/CBL) (951)- - Culture Urine 07/27/2011 [facility] Result (SEE [address] [place] [address] NOTE) [place] [address] [phone] Laboratory test 07/27/2011 [facility] Total PSA 4.34 High 0.00-[address] [place] [address] ng/mL .00 [place] [address] [phone] Testosterone 375.57 ng/dL 225.00-972.00 PSA Free 07/27/2011 [facility] Free PSA 1.973 ng/mL [address] [place] [address] [phone] Free PSA 45 BUN + Creatinine 03/15/2011 [facility] BUN - Urea Nitrogen 15 5-23 [address] [place], [place] [address] [phone] Creatinine 0.9 0.5-1.4 BUN + Creatinine 03/15/2011 [facility] BUN - Urea Nitrogen 15 5-23 [address] [place], [place] [address] [phone] Creatinine 0.9 0.5-1.4 Laboratory test 01/25/2011 [facility] Total PSA 4.00 ng/mL 0.00-4.[address] [place] [address] [phone] #Ua Routine 01/25/2011 [facility] Ua Glucose Negative REF TO DR ADDRESS ON ORDER FOR (315)- - Ua Prot/Creat Normal Ua Protein Negative Ua Nitrite Negative Ua Leuko Trace Ua Blood Negative Ua Color Not Entered Ua Ketones Negative Ua Clarity Not Entered Ua Specific [place] 1.020 Ua PH 6.0 Ua Creatinine 100 mg/dL Laboratory test finding 06/05/2006 Outside Facility PSA Total neg bx (315)- - 1 C82.18, E86.0, R97.20 2 THIS ASSAY IS NOT INTENDED A CANCER SCREENING TEST The concentration of PSA in a given specimen, determined with assays from different manufacturers, can vary due to differences in assay methods and reagent specificity. Values obtained from different assay methods cannot be used interchangeably. Method: [employer] [place] Chemiluminescent immunoassay. 3 specimen thawed at 08:20am 01/24/16 4 IN 20% OF CASES W/ BPH, PSA MAY BE 10 NG/ML OR MORE. SERUM PSA CONCENTRATION SHOULD NOT BE INTERPRETED ABSOLUTE EVIDENCE FOR THE PRESENCE OR ABSENCE OF MALIGNANT DISEASE. METHOD IS [employer] ACCESS/[employer] EQUIMOLAR ASSAY. VALUES OBTAINED WITH DIFFERENT ASSAY [...] drugs. Procedures Date Code Description Status 05/24/2018 70742363 Colonoscopy Completed 04/26/2018 35174 Bladder Scan, Post Voiding Residual Urine Completed 01/31/2017 27220 Bladder Scan, Post Voiding Residual Urine Completed 01/21/2016 87930 Bladder Scan, Post Voiding Residual Urine Completed 07/22/2015 11226 Ultrasound, Pelvic Limited (Bladder US) Completed Encounters Type Date Location Provider Dx Diagnosis Office Visit 05/24/2018 Ty Montague R33.9 Retention of urine, 10:00a Urology Delmer Nash.ALaura unspecified Office Visit 04/26/2018 Osman[facility]/Yadira Montague R97.20 Elevated prostate 9:15a Urology Adore Nash specific antigen [PSA] R33.9 Retention of urine, unspecified Office 12/14/2017 Osmani/Yadira Montague R97.20 Elevated Visit 2:30p Urology Adore Nash prostate specific antigen [PSA] Office 08/20/2017 Ty Leiva MD R97.20 Elevated Visit 2:30p Urology prostate specific antigen [PSA] Office 07/25/2017 Ty Leiva MD R97.20 Elevated Visit 1:35p Urology prostate specific antigen [PSA] Office 01/31/2017 Os[facility]/Christina Gimenez, N39.43 Post-void Visit 1:30p Martyy Elicia eduardo R97.20 Elevated prostate specific antigen [PSA] N40.1 Benign prostatic hyperplasia with lower urinary tract symp Office Visit 07/26/2016 Osmani/Christina Gimenez R97.20 Elevated 3:00p Urology Elicia Huertas prostate specific antigen [PSA] N40.1 Benign prostatic hyperplasia with lower urinary tract symp N39.43 Post-void dribbling Office Visit 01/21/2016 9:00a Osmani/Marian Mcgill, R97.2 Elevated Urology [facility]/[place] prostate specific antigen [PSA] N40.1 Enlarged prostate with lower urinary tract symptoms R35.0 Frequency of micturition Office Visit 07/22/2015 Osmani/Christina Gimenez R97.2 Elevated 9:10a Urology Elicia Huertas prostate specific antigen [PSA] N40.1 Enlarged prostate with lower urinary tract symptoms R35.1 Nocturia R35.0 Frequency of micturition R39.15 Urgency of urination Office Visit 01/29/2015 9:00a Osmani/Ashish.M.Marian Prasad, 790.93 Elevated Urology [facility] Prostate Specific Antigen (PSA) 600.01 Hypertrophy Benign Of Prostate With Urinary Obstruction 788.4-1 Nocturia Office Visit 07/28/2014 8:40a Osmani/A.M.Christina Pelletier 788.4-1 Nocturia Urology Elicia Huertas 790.93 Elevated Prostate Specific Antigen (PSA) 600.01 Hypertrophy Benign Of Prostate With Urinary Obstruction 607.84 Impotence Organic Origin Office Visit 01/23/2014 9:00a Osmani/Ashish.M.Marian Prasad, 790.93 Elevated Urology [facility] Prostate Specific Antigen (PSA) 599.72 Microscopic Hematuria Office Visit 07/25/2013 Osmani/Ashish.M.Christina Pelletier 790.93 Elevated 10:30a Urology Elicia Huertas Prostate Specific Antigen (PSA) 788.4-1 Nocturia 607.84 Impotence Organic Origin Office Visit 01/24/2013 9:15a Osmani/Ashish.M.Marian Prasad, 790.93 Elevated Urology [facility]/PA Prostate Specific Antigen (PSA) 600.01 Hypertrophy Benign Of Prostate With Urinary Obstruction 599.72 Microscopic Hematuria Office Visit 07/24/2012 Osmani/Ashish.M.Christina Pelletier 790.93 Elevated 1:10p Urology Elicia Huertas Prostate Specific Antigen (PSA) 600.01 Hypertrophy Benign Of Prostate With Urinary Obstruction Office Visit 01/24/2012 Osmani/A.M.Christina Pelletier 790.93 Elevated 1:20p Urology Elicia Huertas Prostate Specific Antigen (PSA) 600.00 Hypertrophy Prostate W/O Urinary Obstruction & Other Luts Office Visit 07/27/2011 2:00p Osmani/Ashish.M.Marian Prasad, 790.93 Elevated Urology [facility] Prostate Specific Antigen (PSA) 600.01 Hypertrophy Benign Of Prostate With Urinary Obstruction 599.72 Microscopic Hematuria Office Visit 01/25/2011 Osmani/Ashish.M.Christina Pelletier 790.93 Elevated 2:50p Urology Elicia Huertas Prostate Specific Antigen (PSA) 788.4-1 Nocturia 600.01 Hypertrophy Benign Of Prostate With Urinary Obstruction Plan of Treatment Future Appointment(s):06/03/2018 1:30 pm - [facility] at [place]/ A.M.P. Jxtvpei60/29/2018 1:00 pm - [facility] [place]/A.M.P. [id number] - John NashPAndersonR33.9 Retention of urine, unspecifiedComments:I reviewed his BUN/creatinine history and since 2010 his BUN is gone between 15 and 20. His creatinine is ranged up and down between 0.9 and 1.2. Most recently 0.9. We'll discuss treatment options withhis bladder volumes and frankly the son is agreement with doing the minimal at this point. I will have a renal bladder ultrasound performed to make sure there is no upper tract affects of urinary retention and consider long-term options based on those results.
[2018-06-09 09:28] LABS: ABS Basophils 0 10^3/ul (0-0.2); ABS Eosinophils 0.3 10^3/ul (0-0.6); ABS Lymphocytes 0.5 10^3/ul (1.0-4.8); ABS Monocytes 0.4 10^3/ul (0-0.8); ABS Neutrophils 2.8 10^3/ul (1.5-7.7); ABS Nucleated RBC 0 10^3/ul; Eosinophil % 6.3 % (0-6); Hematocrit 34 % (42-52); Hemoglobin 11.4 g/dl (14.0-18.0); Mean Corpuscular HGB Conc 34 g/dl (31-36); Mean Corpuscular Hemoglobin 31 pg (27-31); Mean Corpuscular Volume 92 fL (80-94); Mean Platelet Volume 7.5 fL (7.4-10.4); Nucleated Red Blood Cells % 0.1; Platelet Count 180 10^3/ul (150-450); Red Blood Count 3.68 10^6/ul (4.00-5.40); Red Cell Distribution Width 14 % (10.5-15); White Blood Count 4.1 10^3/ul (3.5-10.8)
[2018-06-09 09:36] LABS: INR 1.05 (0.77-1.02)
[2018-06-09 09:39] LABS: EGFR Non-African American 79.8 (>60)
[2018-06-09] MEDS ORDERED: Iohexol 350* (CONTRAST) 500 ML MDV IV ONE (09:54)
[2018-06-09 11:31] LABS: Urine Appearance Clear; Urine Blood Negative (Negative); Urine Color Yellow; Urine Ketones Negative (Negative); Urine Protein Negative (Negative); Urine Specific Gravity 1.015 (1.010-1.030); Urine Urobilinogen Negative (Negative)
--- NOTE | 2018-06-09 11:53 | RAD ---
CPT II: CPT II Codes: 3100F INDICATION: Altered mental status and right-sided weakness COMPARISON: None TECHNIQUE: A noncontrast CT of the brain was obtained prior to contrast injection. A CT angiogram of the head and neck was performed with 80 cc of Omnipaque 350. Contiguous axial sections were obtained from the thoracic inlet through the morongo of [place]. Images were reconstructed in the sagittal, coronal planes and in a 3-D volume rendered format. The distal cervical internal carotid artery diameter is used as the denominater for stenosis measurement. CTA NECK: The common and internal carotid arteries are patent without hemodynamically significant stenosis. Right: Below the carotid bifurcation the common carotid artery measures 8 mm in short axis diameter. There is mixed attenuation atherosclerosis of the carotid bulb and the proximal internal carotid artery exhibits a minimum diameter measurement of 5 mm. This corresponds to approximately 30% degree stenosis. Left: Below the carotid bulb of the common carotid artery measures 7 mm in short axis diameter. There is coarsely calcified atherosclerosis at the left carotid bulb but the short axis dimension of the internal carotid artery measures 8 mm yielding 0% degree stenosis. The vertebral arteries are patent without gross abnormality. CTA of the brain: On the noncontrast CT of the brain there is diffuse periventricular and subcortical white matter hypoattenuation most consistent with chronic microvascular disease. There are symmetrical involutional changes of the ventricles, sulci and cisterns consistent with age-appropriate involutional changes. The internal carotid, anterior and middle cerebral arteries appear are patent without high grade stenosis or occlusion. The vertebral, basilar and posterior cerebral arteries appear patent without high grade stenosis or occlusion. The morongo of [place] is complete with bilateral posterior communicating arteries identified. No focal luminal filling defect, aneurysm or vascular malformation is seen. NON-ARTERIAL FINDINGS: There is moderate mucosal thickening of the left worse than right maxillary sinuses. In the left choana there is a well-circumscribed soft tissue mass measuring 1.3 x 2.4 cm in the axial plane (series 3 image 3) and 2 cm in the cephalocaudal dimension (series 700.2 image 7). There is no associated bony destruction of the adjacent septum or medial wall of the left maxillary sinus. There is low-attenuation material tracking along the left subclavian vein Mediport which could either be venous mixing from the left internal jugular vein or alternatively a fibrin sheath around the catheter. There is not appear to be any significant stenosis or occlusion of the left subclavian vein. Contrast injected into the left upper extremity appears to flow through the subclavian vein into the SVC. IMPRESSION: 1. There is mixed attenuation atherosclerosis of the bilateral carotid bulbs. According to NASCET criteria there is approximately 38% degree stenosis at the right carotid bulb and a 0% degree stenosis at the left carotid bulb. 2. There is no abrupt filling defect or other acute abnormality of the visualized arteries of the head and neck. 3. There is an age-appropriate degree of microvascular disease and involutional changes of the brain. 4. Possible nasal polyp in the left choana. Superior characterization could BE made with direct visualization. 5. Incidentally noted is low-attenuation material surrounding the patient's left subclavian vein Mediport. This could either be due to contrast-free blood mixing from the left internal jugular vein or could be formation of a fibrin sheath. Please correlate to functionality of the patient's Mediport.
[2018-06-09] MEDS ORDERED: NS 0.9% 1000 ML* 1,000 ML IV ONE (13:38)
--- NOTE | 2018-06-09 15:27 | RAD ---
INDICATION: Altered mental status. Possible seizure. COMPARISON: Similar chest x-ray January 05, 2016 TECHNIQUE: PA and lateral views of the chest were obtained. FINDINGS: Again seen is a left subclavian vein Mediport with the tip terminating at the superior vena cava. The heart and mediastinum are normal in size and contour. There is coarse calcification at the arch of the aorta. There is patchy density along the medial margin of the right lung base. This does not silhouette the right border of the heart. Elsewhere the lungs are well aerated. Visualized bones are normal for the patient's age. There is no radiographic evidence of free air beneath the diaphragm IMPRESSION: POSSIBLE INFILTRATE AT THE MEDIAL ASPECT OF THE RIGHT LOWER LUNG.
[2018-06-09] MEDS ORDERED: LORazepam INJ* 2 MG/ML 1 ML VIAL IM ONE (15:44)
[2018-06-09 17:52] VITALS: BP 152/82
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
== END 2018-06-09 17:52 | disposition short-term general hospital (02) ==
LOC: ED 08:43
DX: R53.1 Weakness (principal); R41.82 Altered mental status, unspecified; I10 Essential (primary) hypertension; Z87.891 Personal history of nicotine dependence; Z85.118 Personal history of other malignant neoplasm of bronchus and lung
CPT/HCPCS: 36415; 70496; 70498; 71046; 80053; 80307; 80320; 81003; 83605; 84443; 84484; 85025; 85610; 93005; 96360; 96361; 96372; 99284; G0480; J2060; Q9967